=== PATIENT | female | born 1950 | race Caucasian/White ===

== ENCOUNTER → 2018-05-02 | Outpatient (CLI) | payer OTHER ==
[~2018-05-02] MED LIST: ASPIRIN EC325 M1 PO; B-COMPLEX PLUS1 EACH PO; CLARITIN10 MG PO; CO Q-10200 MG PO; CORAL CALCIUM1 EAC2 PO; FARXIGA10 MG PO; FENOFIBRATE160 MG PO; FOLIC ACID1 MG PO; GLIPIZIDE ER10 MG PO; GLUCOPHAGE1000 MG PO; GLUCOPHAGE500 MG PO; HAIR SKIN NAIL1 EACH; HAIR, SKIN & N1 EAC1 PO; HYCET 7.5 MG-3473 ML PO; L-METHYLFOLATE7.5 MG PO; LEVEMIR SUBQ; LIDODERM 5%1 PATC1 TRANSDERM; LISINOPRIL5 MG PO; MIRALAX255 GM PO; MOVE FREE ULTR1 EACH PO; OCUVITE TABLET1 EAC1 PO; OMEGA-31000 M1 PO; OXYBUTYNIN 5 MG5 M2 PO; PROLIA60 MG/1 ML SQ; SANCTURA20 MG PO; VITAMIN C500 M1 PO; VITAMIN D32000 UNI1 PO; VITAMIN K100 MCG PO; ZOFRAN ODT4 MG PO
== END ==
LOC: M.RAD 07:46
DX: Z12.31 Encounter for screening mammogram for malignant neoplasm of breast (principal); E11.9 Type 2 diabetes mellitus without complications; I10 Essential (primary) hypertension; E66.01 Morbid (severe) obesity due to excess calories; G47.33 Obstructive sleep apnea (adult) (pediatric); Z88.0 Allergy status to penicillin

== ENCOUNTER 2018-12-13 16:58 | Emergency (ER) | payer OTHER ==
[~2018-12-13] VITALS: Ht 165.1 cm; Wt 86.6 kg
[2018-12-13 19:57] VITALS: BP 206/85
== END 2018-12-13 19:57 | disposition home or self-care (01) ==
LOC: M.ERS 16:58
DX: S80.01XA Contusion of right knee, initial encounter (principal); R60.0 Localized edema; I10 Essential (primary) hypertension; E11.9 Type 2 diabetes mellitus without complications; M81.0 Age-related osteoporosis without current pathological fracture; G47.30 Sleep apnea, unspecified; E78.00 Pure hypercholesterolemia, unspecified; Z79.4 Long term (current) use of insulin; Z88.7 Allergy status to serum and vaccine; Z88.0 Allergy status to penicillin; Z88.1 Allergy status to other antibiotic agents; Z88.8 Allergy status to other drugs, medicaments and biological substances; W18.39XA Other fall on same level, initial encounter; Y93.89 Activity, other specified; Y92.89 Other specified places as the place of occurrence of the external cause; Y99.8 Other external cause status

== ENCOUNTER → 2019-01-18 | Outpatient (CLI) | payer OTHER | LOC: M.ULTRA 01-13 10:19 | DX: D25.9 Leiomyoma of uterus, unspecified (principal); N95.0 Postmenopausal bleeding; Z87.42 Personal history of other diseases of the female genital tract; Z79.899 Other long term (current) drug therapy ==

== ENCOUNTER → 2019-11-30 | Outpatient (CLI) | payer OTHER | LOC: M.ULTRA 12:47 | DX: I73.9 Peripheral vascular disease, unspecified (principal); I10 Essential (primary) hypertension; E11.9 Type 2 diabetes mellitus without complications; G47.30 Sleep apnea, unspecified ==

== ENCOUNTER → 2020-08-26 | Outpatient (CLI) | payer OTHER | LOC: M.RAD 08-22 08:00 | PROVIDERS: ATTEND Registered Nurse Diabetes Educator | DX: M85.88 Other specified disorders of bone density and structure, other site (principal); Z78.0 Asymptomatic menopausal state ==

== ENCOUNTER → 2021-09-08 | Outpatient (CLI) | payer OTHER | LOC: M.ULTRA 09:00 | PROVIDERS: ATTEND Registered Nurse Diabetes Educator | DX: Z12.31 Encounter for screening mammogram for malignant neoplasm of breast (principal) ==